=== PATIENT | female | born 1945 | race Caucasian/White ===

== ENCOUNTER 2018-04-26 08:27 | Outpatient (CLI) | payer MEDICARE, SELFPAY ==
[2018-04-26 09:53] LABS: ALT 28 U/L (12-78); AST 17 U/L (15-37); Albumin 3.5 g/dL (3.4-5.0); Alkaline Phosphatase 62 U/L (46-116); Anion Gap 5.5 mmol/L (3-11); BUN 24 mg/dL (7-18); Bilirubin, Total 0.5 mg/dL (0.2-1.0); CO2 29.5 mmol/L (21.0-32.0); Calcium 8.6 mg/dL (8.5-10.1); Chloride 106 mmol/L (98-107); Cholesterol 213 mg/dL (50-200); Glucose 81 mg/dL (70-100); HDL Cholesterol 107 mg/dL (40-60); LDL CHOLESTEROL 94 mg/dL (<100); Potassium 4.7 mmol/L (3.5-5.1); Sodium 141 mmol/L (136-145); Total Protein 6.3 g/dL (6.4-8.2); Triglyceride 45 mg/dL (30-150)
== END 2018-04-26 08:47 ==
DX: I73.00 Raynaud's syndrome without gangrene (principal); G89.29 Other chronic pain; E78.89 Other lipoprotein metabolism disorders
CPT/HCPCS: 36415; 80053; 80061; 83721

== ENCOUNTER 2018-06-01 07:33 | Emergency (ER) | payer MEDICARE, SELFPAY ==
[2018-06-01] VITALS (9 sets, daily range): BP systolic 132–160; BP diastolic 65–70; PULSE 56–58; RESP 18; TEMP 36.5–36.7; O2SAT 90–100
[2018-06-01 07:50] LABS: Bilirubin Negative (Negative); Blood Negative (Negative); Clarity Clear; Glucose Negative (Negative); Ketones Negative (Negative); Leukocyte Esterase Negative (Negative); Nitrite Negative (Negative); Urobilinogen 0.2 EU/dL (Up TO 0.2)
--- NOTE | 2018-06-01 07:58 | DI.CT_ITS ---
SYMPTOM/DIAGNOSIS: RIGHT FLANK PAIN CT ABDOMEN AND PELVIS: Renal colic CT was performed according to protocol. There are no priors for comparison The visualized lungs show scarring, atelectasis in the bases. Lack of IV contrast does limit evaluation of the abdominal, pelvic organs. The unenhanced visualized portions of the liver, spleen, gallbladder, bile ducts , pancreas and adrenal glands are unremarkable. The kidneys show no evidence of nephrolithiasis, ureterolithiasis or hydronephrosis. The urinary bladder is intact. Reproductive organs as visualized are unremarkable. Note is made of bilateral parapelvic cysts. The abdominal aorta is of normal caliber. No significant abdominal or pelvic adenopathy, ascites or pneumoperitoneum is present. There is diverticulosis of the colon but no evidence of acute diverticulitis. There is a mild to moderate amount of retained stool in the colon. There is a normal appendix in the right lower quadrant. The bones are intact. There are degenerative changes in the spine and hips bilaterally, right greater than left. IMPRESSION: No evidence of nephrolithiasis or obstructive uropathy. The findings were discussed with Dr. Freeman of the Emergency Department on the date of the examination.
[2018-06-01 08:09] LABS: Bacteria Few HPF (Negative); Crystals Negative HPF (Negative); Epithelial Cells Few HPF (Negative); Mucus Trace (Negative); RBC Negative (0-2); WBC 0-2 HPF (0-5)
[2018-06-01 08:10] LABS: C & S Indicated? No; Casts 0-2 Hyaline LPF (Negative)
[2018-06-01] MEDS: Normal Saline 1,000 ML 1000 ML IV (08:10)
[2018-06-01] MEDS: Ondansetron 4 MG/2 ML VIAL IVP (08:13)
[2018-06-01] MEDS: Ketorolac 15 MG/ML VIAL IVP (08:14)
[2018-06-01 08:17] LABS: Absolute Basophil Count 0.04 k/cumm (0.0-0.2); Absolute Eosinophil Count 0.07 k/cumm (0.0-0.7); Absolute Lymphocyte Count 0.76 k/cumm (1.2-3.4); Absolute Monocyte Count 0.37 k/cumm (0.11-0.7); Absolute Neutrophil Count 4.75 k/cumm (1.2-6.7); Basophils % 0.7; Eosinophils % 1.2; HCT 42.5 % (36.0-46.0); HGB 14.1 g/dL (12.0-15.5); Lymphocytes % 12.7; Mean Corp. HGB Concentration 33.2 g/dL (32.0-36.0); Mean Corpuscular Hemoglobin 30.2 pg (27.0-33.0); Mean Platelet Volume 9.5 fL (8.0-11.0); Monocytes % 6.2; Neutrophils % 79.2; Platelet Count 230 x1000/uL (130-400); RBC 4.67 m/cumm (4.00-5.20); RBC Distribution Width 13.6 % (11.7-14.6); White Blood Cell Count 5.99 k/cumm (4.4-10.8)
--- NOTE | 2018-06-01 08:21 | W.ED.GENAD ---
Discharge Plan Disposition Patient Disposition: HOME Condition: Good Discharge Details Chief Complaint: FlankPain Clinical Impression: Lumbar paraspinal muscle spasm, Right flank pain Primary Care Provider: Clarisa Conti ED Provider: Lio Freeman Home Meds and New Rx's Prescriptions: New cyclobenzaprine 10 mg tablet 10 mg PO TID PRN (Reason: muscle spasm) Qty: 30 RF: 0 Continue cholecalciferol (vitamin D3) [Vitamin D3] 400 UNIT capsule 400 unit PO daily prn RF: 0 ibuprofen [Ibuprofen IB] 200 MG tablet 400 mg PO TID PRN RF: 0 triamcinolone acetonide 15 GM cream 1 appful Topical BID PRNQty: 30 RF: 1 Discharge Instructions Instructions: Muscle Spasm (ED) Additional Instructions: your blood work and cat scan did not show a cause for your pain. this could be a muscle spasm, back strain or less likely a disc herniation you can take 1000mg tylenol and 600mg ibuprofen every 6 hours for pain as needed. If you take the cyclobenzaprine do not drive or drink alcohol follow up with your primary care provider's office in a week especially if symptoms continue return to the emergency department for severe worsening of pain, abdominal pain, fevers, weakness or inability to urinate Medical Decision Making 72 yo female began with right lower back pain yesterday and some intermittent nusea. Has no cva tenderness, urinary symptoms or fevers. No abdominal tenderness. Denies any trauma or known heavy lifting. Given location of pain will obtain CT to eval for possible kidney stone. No abdominal tenderness so doubt entities such as appendicitis or other surgical pathology. Normal strength and sensation in the lower extremities and no saddle anesthesia or urinary retention so doubt cauda equina and no fevers or midline back pain so doubt sea pts labs unremarkable and ua is also unremarkble. Ct per Dr. Senior shows no acute findings. She still only has pain in the right lower lumbar region, no upper back pain and still no focal motor or sensation deficits and no saddle anesthesia so do not feel emergent MRI indicated. will tx as possible muscle spasm and advised f/u with pcp in a week if not improving and return precautions given Differential Diagnosis back strain, pyelo, kidney stone Imaging Data Radiologic Study: Attestation: I personally reviewed and interpreted this imaging study as follows: Imaging: CT Scan Radiologist's impression: no acute findings per Dr. Senior verbal report Lab Data Lab results reviewed: Yes I reviewed the patient's lab results. HPI General Mode of arrival: ambulatory. Date/Time Provider Initiated Documentation: 06/01/18 07:58. Limitations to Documentation: no limitations. Information obtained by: patient. History of Present Illness 72 year old F presents to the emergency department with the chief complaint of right lower back pain, described as moderate, Quality is described as aching, Patient reports no radiation. Patient started experiencing this day(s) (1) No relieving factors improve symptom(s), No exacerbating factors reported . Patient did receive the following treatments prior to arrival, NSAID Related Data Home Medications Medication Instructions Recorded Confirmed cholecalciferol (vitamin D3) 400 unit PO daily prn 05/11/15 06/01/18 [Vitamin D3] ibuprofen [Ibuprofen IB] 400 mg PO TID PRN tab-cap 05/29/15 06/01/18 triamcinolone acetonide 1 appful TOPICAL BID PRN #30 gm 07/31/17 05/03/18 cyclobenzaprine 10 mg PO TID PRN #30 tab 06/01/18 Previous Rx's Medication Instructions Recorded cyclobenzaprine 10 mg PO TID PRN #30 tab 06/01/18 Allergies Allergy/AdvReac Type Severity Reaction Status Date / Time Sulfa (Sulfonamide Allergy Mild RASH Unverified 06/01/18 07:53 Antibiotics) Scallops Allergy Intermediate Vomiting/Di Uncoded 06/01/18 07:53 arrhea General Stated Complaint: FlankPain AVTAR: 3 Review of Systems Review of Systems All systems reviewed & are unremarkable except as noted in HPI and below Constitutional Denies chills, Denies fever(s) and Denies weakness Eyes Denies loss of vision ENT Denies change in voice Cardiovascular Denies chest pain and Denies dyspnea Respiratory Denies dyspnea Gastrointestinal Denies abdominal pain and Denies vomiting Genitourinary Denies dysuria Musculoskeletal Denies joint swelling Integumentary/Breasts Denies rash Neurologic Denies loss of vision and Denies weakness Endocrine Denies cold intolerance and Denies heat intolerance Allergic/Immunologic Denies urticaria Exam Const General: no acute distress Orientation: alert HENMT Head: normal to inspection Ears: external ears normal General nose exam: external nose normal Mouth: moist mucous membranes Eyes General: appearance normal, both eyes and all related structures Neck Neck: normal visual inspection Resp Effort & Inspection: normal respiratory effort and able to speak in complete sentences Cardio Rate: regular rate Skin General skin exam: no rashes or lesions noted Neuro General: alert and oriented x3 Extrem General: normal to inspection Psych Mental Status: mental status grossly normal Course Vital Signs Pulse 57 L 06/01/18 07:43 Blood Pressure 160/70 H 06/01/18 07:43 Temperature 36.7 C 06/01/18 07:44 Temperature Source Temporal Artery Scan 06/01/18 07:44 Pulse 56 L 06/01/18 07:46 Respiratory Rate 18 06/01/18 07:44 Respiratory Effort Non-Labored 06/01/18 07:50 Blood Pressure 158/67 H 06/01/18 07:46 Blood Pressure Mean 91 06/01/18 07:46 Blood Pressure Position Supine 06/01/18 07:44 Pulse Oximetry 99 06/01/18 07:46 Oxygen Delivery Method Room Air 06/01/18 07:44 Oxygen Flow Rate 0 06/01/18 07:44 Pain Level 7 06/01/18 08:14 Lab/Test Results Lab/Test Results: Laboratory Tests Range/Units 06/01/18 06/01/18 07:43 08:05 WBC (4.4-10.8) k/cumm 5.99 RBC (4.00-5.20) m/cumm 4.67 Hgb (12.0-15.5) g/dL 14.1 Hct (36.0-46.0) % 42.5 MCV (80-95) fL 91.0 MCH (27.0-33.0) pg 30.2 MCHC (32.0-36.0) g/dL 33.2 RDW (11.7-14.6) % 13.6 Plt Count (130-400) x1000/uL 230 MPV (8.0-11.0) fL 9.5 Immature Gran % 0.0 Neutrophils % 79.2 Lymphocytes % 12.7 Monocytes % 6.2 Eosinophils % 1.2 Basophils % 0.7 Absolute Neutrophils (1.2-6.7) k/cumm 4.75 Absolute Lymphocytes (1.2-3.4) k/cumm 0.76 L Absolute Monocytes (0.11-0.7) k/cumm 0.37 Absolute Eosinophils (0.0-0.7) k/cumm 0.07 Absolute Basophils (0.0-0.2) k/cumm 0.04 Urine Color (Yellow) Yellow Urine Clarity Clear Urine pH (5-8) 7.0 Ur Specific [place] (1.005-1.025) 1.020 Urine Protein (Negative) mg/dL Trace H Urine Ketones (Negative) mg/dL Negative Urine Blood (Negative) Negative Urine Nitrite (Negative) Negative Urine Bilirubin (Negative) Negative Urine Urobilinogen (Up TO 0.2) EU/dL 0.2 Ur Leukocyte Esterase (Negative) Negative Urine RBC (0-2) Negative Urine WBC (0-5) HPF 0-2 Ur Epithelial Cells (Negative) HPF Few Urine Crystals (Negative) HPF Negative Urine Bacteria (Negative) HPF Few Urine Casts (Negative) LPF 0-2 hyaline Urine Mucus (Negative) Trace Ur Culture Indicated? No Urine Glucose (Negative) mg/dL Negative
--- NOTE | 2018-06-01 08:25 | ED.GENADUL_ITS ---
Discharge Plan Disposition Patient Disposition: HOME Condition: Good Discharge Details Chief Complaint: FlankPain Clinical Impression: Lumbar paraspinal muscle spasm, Right flank pain Primary Care Provider: Clarisa Conti ED Provider: Lio Freeman Home Meds and New Rx's Prescriptions: New cyclobenzaprine 10 mg tablet 10 mg PO TID PRN (Reason: muscle spasm) Qty: 30 RF: 0 Continue cholecalciferol (vitamin D3) [Vitamin D3] 400 UNIT capsule 400 unit PO daily prn RF: 0 ibuprofen [Ibuprofen IB] 200 MG tablet 400 mg PO TID PRN RF: 0 triamcinolone acetonide 15 GM cream 1 appful Topical BID PRNQty: 30 RF: 1 Discharge Instructions Instructions: Muscle Spasm (ED) Additional Instructions: your blood work and cat scan did not show a cause for your pain. this could be a muscle spasm, back strain or less likely a disc herniation you can take 1000mg tylenol and 600mg ibuprofen every 6 hours for pain as needed. If you take the cyclobenzaprine do not drive or drink alcohol follow up with your primary care provider's office in a week especially if symptoms continue return to the emergency department for severe worsening of pain, abdominal pain , fevers, weakness or inability to urinate Medical Decision Making 72 yo female began with right lower back pain yesterday and some intermittent nusea. Has no cva tenderness, urinary symptoms or fevers. No abdominal tenderness. Denies any trauma or known heavy lifting. Given location of pain will obtain CT to eval for possible kidney stone. No abdominal tenderness so doubt entities such as appendicitis or other surgical pathology. Normal strength and sensation in the lower extremities and no saddle anesthesia or urinary retention so doubt cauda equina and no fevers or midline back pain so doubt sea pts labs unremarkable and ua is also unremarkble. Ct per Dr. Senior shows no acute findings. She still only has pain in the right lower lumbar region, no upper back pain and still no focal motor or sensation deficits and no saddle anesthesia so do not feel emergent MRI indicated. will tx as possible muscle spasm and advised f/u with pcp in a week if not improving and return precautions given Differential Diagnosis back strain, pyelo, kidney stone Imaging Data Radiologic Study: Attestation: I personally reviewed and interpreted this imaging study as follows: Imaging: CT Scan Radiologist's impression: no acute findings per Dr. Senior verbal report Lab Data Lab results reviewed: Yes I reviewed the patient's lab results. HPI General Mode of arrival: ambulatory . Date/Time Provider Initiated Documentation: 06/01/18 07:58 . Limitations to Documentation: no limitations . Information obtained by: patient . History of Present Illness 72 year old F presents to the emergency department with the chief complaint of right lower back pain, described as moderate, Quality is described as aching , Patient reports no radiation. Patient started experiencing this day(s) (1 ) No relieving factors improve symptom(s), No exacerbating factors reported . Patient did receive the following treatments prior to arrival, NSAID Related Data Home Medications Medication Instructions Recorded Confirmed cholecalciferol (vitamin D3) 400 unit PO daily prn 05/11/15 06/01/18 [Vitamin D3] ibuprofen [Ibuprofen IB] 400 mg PO TID PRN tab-cap 05/29/15 06/01/18 triamcinolone acetonide 1 appful TOPICAL BID PRN #30 gm 07/31/17 05/03/18 cyclobenzaprine 10 mg PO TID PRN #30 tab 06/01/18 Previous Rx's Medication Instructions Recorded cyclobenzaprine 10 mg PO TID PRN #30 tab 06/01/18 Allergies Allergy/AdvReac Type Severity Reaction Status Date / Time Sulfa (Sulfonamide Allergy Mild RASH Unverified 06/01/18 07:53 Antibiotics) Scallops Allergy Intermediate Vomiting/Di Uncoded 06/01/18 07:53 arrhea General Stated Complaint: FlankPain AVTAR: 3 Review of Systems Review of Systems All systems reviewed & are unremarkable except as noted in HPI and below Constitutional Denies chills, Denies fever(s) and Denies weakness Eyes Denies loss of vision ENT Denies change in voice Cardiovascular Denies chest pain and Denies dyspnea Respiratory Denies dyspnea Gastrointestinal Denies abdominal pain and Denies vomiting Genitourinary Denies dysuria Musculoskeletal Denies joint swelling Integumentary/Breasts Denies rash Neurologic Denies loss of vision and Denies weakness Endocrine Denies cold intolerance and Denies heat intolerance Allergic/Immunologic Denies urticaria Exam Const General: no acute distress Orientation: alert HENMT Head: normal to inspection Ears: external ears normal General nose exam: external nose normal Mouth: moist mucous membranes Eyes General: appearance normal, both eyes and all related structures Neck Neck: normal visual inspection Resp Effort & Inspection: normal respiratory effort and able to speak in complete sentences Cardio Rate: regular rate Skin General skin exam: no rashes or lesions noted Neuro General: alert and oriented x3 Extrem General: normal to inspection Psych Mental Status: mental status grossly normal Course Vital Signs Pulse 57 L 06/01/18 07:43 Blood Pressure 160/70 H 06/01/18 07:43 Temperature 36.7 C 06/01/18 07:44 Temperature Source Temporal Artery Scan 06/01/18 07:44 Pulse 56 L 06/01/18 07:46 Respiratory Rate 18 06/01/18 07:44 Respiratory Effort Non-Labored 06/01/18 07:50 Blood Pressure 158/67 H 06/01/18 07:46 Blood Pressure Mean 91 06/01/18 07:46 Blood Pressure Position Supine 06/01/18 07:44 Pulse Oximetry 99 06/01/18 07:46 Oxygen Delivery Method Room Air 06/01/18 07:44 Oxygen Flow Rate 0 06/01/18 07:44 Pain Level 7 06/01/18 08:14 Lab/Test Results Lab/Test Results: Laboratory Tests Range/Units 06/01/18 06/01/18 07:43 08:05 WBC (4.4-10.8) k/cumm 5.99 RBC (4.00-5.20) m/cumm 4.67 Hgb (12.0-15.5) g/dL 14.1 Hct (36.0-46.0) % 42.5 MCV (80-95) fL 91.0 MCH (27.0-33.0) pg 30.2 MCHC (32.0-36.0) g/dL 33.2 RDW (11.7-14.6) % 13.6 Plt Count (130-400) x1000/uL 230 MPV (8.0-11.0) fL 9.5 Immature Gran % 0.0 Neutrophils % 79.2 Lymphocytes % 12.7 Monocytes % 6.2 Eosinophils % 1.2 Basophils % 0.7 Absolute Neutrophils (1.2-6.7) k/cumm 4.75 Absolute Lymphocytes (1.2-3.4) k/cumm 0.76 L Absolute Monocytes (0.11-0.7) k/cumm 0.37 Absolute Eosinophils (0.0-0.7) k/cumm 0.07 Absolute Basophils (0.0-0.2) k/cumm 0.04 Urine Color (Yellow) Yellow Urine Clarity Clear Urine pH (5-8) 7.0 Ur Specific [place] (1.005-1.025) 1.020 Urine Protein (Negative) mg/dL Trace H Urine Ketones (Negative) mg/dL Negative Urine Blood (Negative) Negative Urine Nitrite (Negative) Negative Urine Bilirubin (Negative) Negative Urine Urobilinogen (Up TO 0.2) EU/dL 0.2 Ur Leukocyte Esterase (Negative) Negative Urine RBC (0-2) Negative Urine WBC (0-5) HPF 0-2 Ur Epithelial Cells (Negative) HPF Few Urine Crystals (Negative) HPF Negative Urine Bacteria (Negative) HPF Few Urine Casts (Negative) LPF 0-2 hyaline Urine Mucus (Negative) Trace Ur Culture Indicated? No Urine Glucose (Negative) mg/dL Negative
[2018-06-01 08:29] LABS: ALT 30 U/L (12-78); AST 21 U/L (15-37); Albumin 3.7 g/dL (3.4-5.0); Alkaline Phosphatase 63 U/L (46-116); BUN 22 mg/dL (7-18); Bilirubin, Direct 0.12 mg/dL (0.00-0.20); Bilirubin, Total 0.5 mg/dL (0.2-1.0); CREATININE 0.93 mg/dL (0.55-1.02); Chloride 100 mmol/L (98-107); Estimated GFR 58.93 (mL/min/1.73m2); Glucose 107 mg/dL (70-100); Lipase 146 U/L (73-393); Magnesium 1.8 mg/dL (1.8-2.4); Potassium 4.3 mmol/L (3.5-5.1); Sodium 137 mmol/L (136-145)
== END 2018-06-01 09:31 | disposition home or self-care (01) ==
PROVIDERS: Emergency Provider Emergency Medicine
DX: M62.830 Muscle spasm of back (principal); R10.31 Right lower quadrant pain; R11.0 Nausea
CPT/HCPCS: 36415; 80053; 80076; 83690; 96361; 96374; 96375; 99284; 74176; 81003; 81015; 83735; 85025; 99283; J1885; J2405

== ENCOUNTER 2019-06-03 01:42 | Outpatient (CLI) | payer MEDICARE, SELFPAY ==
[2019-06-03 09:07] LABS: BUN 29 mg/dL (7-18); CREATININE 0.88 mg/dL (0.55-1.02); Calcium 9.4 mg/dL (8.5-10.1); Chloride 106 mmol/L (98-107); Glucose 85 mg/dL (70-100); Potassium 4.4 mmol/L (3.5-5.1); Sodium 142 mmol/L (136-145)
== END 2019-06-03 02:02 ==
DX: R68.89 Other general symptoms and signs; R53.1 Weakness
CPT/HCPCS: 36415; 80048

== ENCOUNTER 2020-05-17 02:41 | Outpatient (CLI) | payer MEDICARE, SELFPAY ==
[2020-05-17 08:48] LABS: ALT 29 U/L (14-59); AST 20 U/L (15-37); Albumin 3.9 g/dL (3.4-5.0); Alkaline Phosphatase 58 U/L (46-116); Anion Gap 5.6 mmol/L (3-11); BUN 29 mg/dL (7-18); Bilirubin, Total 0.7 mg/dL (0.2-1.0); CO2 29.4 mmol/L (21.0-32.0); CREATININE 1.04 mg/dL (0.55-1.02); Calcium 9.3 mg/dL (8.5-10.1); Chloride 103 mmol/L (98-107); Estimated GFR 51.52 (mL/min/1.73m2); Glucose 84 mg/dL (74-106); Potassium 4.4 mmol/L (3.5-5.1); Sodium 138 mmol/L (136-145); Total Protein 6.8 g/dL (6.4-8.2)
== END 2020-05-17 03:01 ==
DX: M62.81 Muscle weakness (generalized) (principal); R10.31 Right lower quadrant pain; R68.89 Other general symptoms and signs
CPT/HCPCS: 36415; 80053

== ENCOUNTER 2021-05-02 02:43 | Outpatient (CLI) | payer MEDICARE, SELFPAY ==
[2021-05-02 09:25] LABS: ALT 28 U/L (14-59); AST 21 U/L (15-37); Albumin 3.8 g/dL (3.4-5.0); Alkaline Phosphatase 65 U/L (46-116); Anion Gap 7.7 mmol/L (3-11); BUN 28 mg/dL (7-18); Bilirubin, Total 0.5 mg/dL (0.2-1.0); CO2 28.3 mmol/L (21.0-32.0); CREATININE 0.9 mg/dL (0.55-1.02); Calcium 9.1 mg/dL (8.5-10.1); Chloride 105 mmol/L (98-107); Glucose 85 mg/dL (74-106); Potassium 4.6 mmol/L (3.5-5.1); Sodium 141 mmol/L (136-145); Total Protein 6.6 g/dL (6.4-8.2)
== END 2021-05-02 02:44 | disposition home or self-care (01) ==
LOC: LBO 02:43
DX: I73.00 Raynaud's syndrome without gangrene; M16.11 Unilateral primary osteoarthritis, right hip; R10.84 Generalized abdominal pain
CPT/HCPCS: 36415; 80053

== ENCOUNTER 2021-06-21 18:43 | Outpatient (REF) | payer MEDICARE, SELFPAY ==
[2021-06-24 12:12] LABS: COVID-19 RT-PCR UVMMC Result Indeterminate (Negative)
== END 2021-06-21 18:44 | disposition home or self-care (01) ==
LOC: LBN 18:43
PROVIDERS: Visit Provider Family Medicine
DX: Z20.822 Contact with and (suspected) exposure to COVID-19 (principal); R50.9 Fever, unspecified
CPT/HCPCS: U0003

== ENCOUNTER → 2022-03-06 02:04 | Outpatient (CLI) | payer MEDICARE, SELFPAY ==
--- NOTE | 2022-03-06 06:30 | DI.RAD_ITS ---
Exam(s) XR CHEST 2V PA LATERAL EXAM: XR CHEST 2V PA LATERAL CLINICAL HISTORY: dyspnea on exertion x 1yr,R06.00 TECHNIQUE: 2D digital imaging was performed. COMPARISON: No exams were available for comparison FINDINGS: MEDIASTINUM: Normal. HEART: Normal. PULMONARY VASCULATURE: Normal. LUNGS: Fibrotic changes. PLEURAL SPACE: No pleural effusion or pneumothorax. BONE:Unremarkable for age. IMPRESSION: Mild fibrotic changes. No acute abnormality. DATA REPOSITORY: RADIATION DOSE DELIVERED:
== END ==
PROVIDERS: Visit Provider Nurse Practitioner Family
DX: R06.00 Dyspnea, unspecified (principal); J98.4 Other disorders of lung
CPT/HCPCS: 71046

== ENCOUNTER 2022-03-07 01:02 | Outpatient (CLI) | payer MEDICARE, SELFPAY ==
[2022-03-07 12:45] LABS: Abs Immature Grans 0.02 10^3/uL (0.0-0.06); Absolute Basophil Count 0.08 10^3/uL (0.0-0.2); Absolute Eosinophil Count 0.48 10^3/uL (0.0-0.7); Absolute Lymphocyte Count 1.41 10^3/uL (1.2-3.4); Absolute Monocyte Count 0.61 10^3/uL (0.1-0.8); Absolute Neutrophil Count 4.18 10^3/uL (1.2-6.7); Basophils % 1.2; Eosinophils % 7.1; HCT 41.8 % (36.0-46.0); HGB 13.8 g/dL (11.2-15.7); Immature Grans % 0.3; Lymphocytes % 20.8; MCH 30.3 pg (27.0-33.0); MCV 92 fL (80-95); MPV 10.6 fL (8.0-11.0); Neutrophils % 61.6; Platelet Count 228 10^3/uL (130-400); RBC 4.55 10^6/uL (3.93-5.22); RDW 12.9 % (11.7-14.6); RDW-SD 43.6 fL; WBC 6.78 10^3/uL (4.4-10.8)
== END 2022-03-07 01:03 | disposition home or self-care (01) ==
LOC: LOS 01:03
PROVIDERS: Visit Provider Nurse Practitioner Family
DX: R06.09 Other forms of dyspnea (principal)
CPT/HCPCS: 36415; 85025

== ENCOUNTER 2022-03-10 04:13 | Outpatient (CLI) | payer MEDICARE, SELFPAY ==
[2022-03-10] MEDS: Inhaler, Assist Device 1 EACH MC (11:34)
[2022-03-10] MEDS: Albuterol HFA 18 GM 200 PUFF INH IH (11:34)
--- NOTE | 2022-03-12 15:28 | W.PFT ---
Date of service: 03/10/22 Time of Service: 10:08 Pulmonary Function Test Result Requesting Provider Mary Bruno Indications: Dyspnea Interpretation Spirometry: There is moderate airflow limitation. There is technically no significant bronchodilator response. Lung Volumes: Lung volumes are normal. Diffusion Capacity: Diffusion is low. Airway Pressure: Increased airways resistance. Impression Moderate airflow obstruction with borderline bronchodilator response and a low diffusion. 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 The borderline bronchodilator response and increased airways resistance could indicate an asthma overlap syndrome. Clinical Correlation therefore is recommended.
== END 2022-03-10 04:14 | disposition home or self-care (01) ==
LOC: RT 04:14
PROVIDERS: Visit Provider Nurse Practitioner Family
DX: R94.2 Abnormal results of pulmonary function studies (principal); R06.09 Other forms of dyspnea; R06.2 Wheezing; Z87.891 Personal history of nicotine dependence
CPT/HCPCS: 94060; 94726; 94729

== ENCOUNTER → 2022-04-23 11:59 | Outpatient (CLI) | payer MEDICARE, SELFPAY ==
--- NOTE | 2022-04-23 15:06 | DI.US_ITS ---
APPROVED REPORT EXAM: Comprehensive 2D, Doppler, and color-flow Echocardiogram Patient Location: Out-Patient Dispatch Lead: Loida Abreu RDCS (AE) Indications: SOB, SIMMONS,Asthma Other Information Study Quality: Adequate Conclusion Normal left ventricular wall thickness and chamber size. Estimated ejection fraction is 59%. Wall m otion is normal Normal right ventricular size and systolic function Both atria are normal in size There is no structural or hemodynamically significant valvular disease Estimated right ventricular systolic pressure is 31 mmHg Wall motion Left Ventricle The left ventricle is normal size. The left ventricular systolic function is normal. The left ventric ular ejection fraction is within the normal range. There is normal left ventricular wall thickness. T here is normal LV segmental wall motion. There is no ventricular septal defect visualized. LVEF is 59 %. Right Ventricle The right ventricle is normal size. The right ventricular systolic function is normal. The RVSP is 30 .5_ mmHg. Atria The left atrium size is normal. The right atrium size is normal. The interatrial septum is intact wit h no evidence for an atrial septal defect. Aortic Valve The aortic valve is normal in structure. Aortic valve is trileaflet. There is no aortic valvular sten osis. No aortic regurgitation is present. Mitral Valve The mitral valve is normal in structure. No evidence of mitral valve stenosis. Trace to mild mitral r egurgitation. Tricuspid Valve The tricuspid valve is normal in structure. There is no tricuspid valve stenosis. Mild tricuspid regu rgitation. Pulmonic Valve The pulmonary valve is normal in structure. There is no pulmonic valvular stenosis. There is no pulmo beatriz valvular regurgitation. Great Vessels The aortic root is normal in size. Ascending aorta is not well visualized. Aortic arch is normal in c aliber. IVC is normal in size and collapses >50% with inspiration. Pericardium There is no pericardial effusion. 2D Dimensions IVSD d PLAX 0.91 cm F: 0.6-1.0 LV Vol A2C d MOD 109.3 mL LVPW d PLAX 0.92 cm F: 0.6 - 1.0 LV Vol A4C d MOD 87.8 mL LVID d PLAX 4.29 cm F: 3.8 - 5.2 LA vol/ BSA A2C s A-L 18.9 mL/m2 LVDs 3.00 cm F: 2.2 - 3.5 LA vol/ BSA A4C s A-L 26.2 mL/m2 Ao Root d 3.03 cm F: 2.7 - 3.3 LA Vol/ BSA Biplane s A-L 23.4 mL/m2 RA Area A4C 13.69 cm2 LA Area A4C s MOD 17.71 cm2 RA Vol/ BSA A4C s A-L 20.7 mL/m2 LA Area A2C s MOD 14.32 cm2 LV EF Teichholz 56.0 % LV EF A4C MOD 60.5 % LVEF (Martin's) 56.35 % F: 54 - 74 LV EF A2C MOD 58.0 % LV Volume 77.90 mL F: 46 - 106 LV EF Biplane MOD 56.4 % LV Volume Index 45.82 mL/m2 F: 29 - 61 SV 55.35 mL LV Vol Biplane MOD 98.2 mL SV Index 32.44 mL/m2 FS 29.00 % M-Mode TAPSE 2.54 cm (M/F) >1.7 LV Diastology MV E' medial 0.096 (>0.07 m/s) E/A Ratio 1.0 LV E/e MED 7.45 (<14) MV E Vmax 0.72 (0.4-1.3 m/s) MV E' lateral 0.142 (>0.1 m/s) MV A Vmax 0.75 (0.4-1.3 m/s) LV E/e LAT 5.00 (<14) MV E/A Ratio 0.91 MV E/E' medial 7.46 MV E/E' lateral 5.04 Aortic Valve LVOT Area 3.73 cm2 AoV Area Vmax 2.90 cm2 LVOT Vmax 1.16 m/s AoV Area/ BSA (Vmax) 1.70 cm2/m2 LVOT Mean Torres. 0.77 m/s SAM Mean Torres. 2.71 cm2 LVOT Peak Grad 5.3 mmHg SAM Mean Torres. Index 1.59 cm2/m2 LVOT Mean Grad 2.7 mmHg LVOT VTI 0.278 m LVOT Diam s 2.15 cm AoV Vmax 1.48 m/s Velocity Ratio 0.78 AoV Mean Torres. 1.05 m/s AoV Peak Grad 8.8 mmHg LVOT SV 103.77 mL AoV Mean Grad 4.9 mmHg AoV VTI 0.327 m AoV Area VTI 3.17 cm2 AoV Area/ BSA (VTI) 1.86 cm/m2 Mitral Valve MV DT 215 (160-240 msec) MV PHT 62 msec MV Area PHT 3.52 cm2 MV VTI 0.356 m MV Area VTI 2.91 (4.0-6.0 cm2) Pulmonary Valve PV Vmax 1.03 (0.5-1.5 m/s) RVOT Peak Gr. 0.83 mmHg PV Peak Grad 4.2 mmHg RVOT Mean Gr. 0.45 mmHg PV Mean Grad 3.1 mmHg RVOT VTI 0.100 m PV VTI 0.254 m RVOT Vmax 0.45 m/s Tricuspid Valve TR Peak Grad 27.4 mmHg TR Vmax 2.62 m/s RA Pressure 3.00 mmHg RVSP (TR) 30.5 mmHg
== END ==
PROVIDERS: Visit Provider Family Medicine
DX: J44.9 Chronic obstructive pulmonary disease, unspecified (principal); R06.00 Dyspnea, unspecified; Z98.890 Other specified postprocedural states
CPT/HCPCS: 93306

== ENCOUNTER 2022-07-09 12:55 | Outpatient (REF) | payer MEDICARE, SELFPAY ==
[2022-07-09 13:20] LABS: COMMENT (LAB VIEW ONLY) 17.99 mg/dL; Microalb ug/mg Crea 27.2 ug/mg Cr
== END 2022-07-09 12:56 | disposition home or self-care (01) ==
LOC: LBN 12:55
PROVIDERS: PCP Nurse Practitioner Family; Visit Provider Nurse Practitioner Family
DX: I10 Essential (primary) hypertension (principal)
CPT/HCPCS: 82043; 82570

== ENCOUNTER 2022-07-29 03:15 | Outpatient (CLI) | payer MEDICARE, SELFPAY ==
[2022-07-29 08:15] LABS: ALT 26 U/L (14-59); AST 24 U/L (15-37); Albumin 3.9 g/dL (3.4-5.0); Alkaline Phosphatase 65 U/L (46-116); Anion Gap 6.7 mmol/L (3-11); BUN 30 mg/dL (7-18); Bilirubin, Total 0.6 mg/dL (0.2-1.0); CO2 28.3 mmol/L (21.0-32.0); CREATININE 1.1 mg/dL (0.55-1.02); Calcium 9.7 mg/dL (8.5-10.1); Chloride 103 mmol/L (98-107); Estimated GFR 51.43 (mL/min/1.73m2); Glucose 91 mg/dL (74-106); Potassium 4.1 mmol/L (3.5-5.1); Sodium 138 mmol/L (136-145); Total Protein 7.3 g/dL (6.4-8.2)
== END 2022-07-29 03:16 | disposition home or self-care (01) ==
LOC: LBO 03:15
PROVIDERS: PCP Nurse Practitioner Family; Visit Provider Nurse Practitioner Family
DX: I10 Essential (primary) hypertension (principal)
CPT/HCPCS: 36415; 80053

== ENCOUNTER 2022-12-13 16:29 | Outpatient (REF) | payer MEDICARE, SELFPAY ==
[2022-12-13 17:06] LABS: Anion Gap 4.9 mmol/L (3-11); BUN 37 mg/dL (7-18); CO2 29.1 mmol/L (21.0-32.0); CREATININE 1.2 mg/dL (0.55-1.02); Calcium 9.5 mg/dL (8.5-10.1); Chloride 104 mmol/L (98-107); Estimated GFR 46.05 (mL/min/1.73m2); Glucose 105 mg/dL (74-106); Potassium 4.6 mmol/L (3.5-5.1); Sodium 138 mmol/L (136-145); Uric Acid 5.3 mg/dL (2.6-6.0)
== END 2022-12-13 16:30 | disposition home or self-care (01) ==
LOC: LBN 16:29
PROVIDERS: PCP Nurse Practitioner Family; Visit Provider Nurse Practitioner Family
DX: M25.561 Pain in right knee (principal); I10 Essential (primary) hypertension
CPT/HCPCS: 80048; 84550

== ENCOUNTER 2022-12-16 11:14 | Outpatient (CLI) | payer MEDICARE, SELFPAY ==
--- NOTE | 2022-12-16 11:15 | DI.RAD_ITS ---
Exam(s) XR KNEE RT 3V AP,LAT,KRYSTAL EXAM: XR KNEE RT 3V AP,LAT,KRYSTAL CLINICAL HISTORY: increased pain and swelling, seborrheic keratoses, L82.1. TECHNIQUE: 2D digital imaging was performed. COMPARISON: No exams were available for comparison FINDINGS: 3 views No evidence fracture nor obvious joint effusion. There are significant degenerative changes in the p atellofemoral compartment. Mild degenerative changes in the medial lateral compartments. Bone densi ty age-appropriate. No osseous lesions. IMPRESSION: As above. DATA REPOSITORY: RADIATION DOSE DELIVERED:
== END 2022-12-16 11:34 ==
LOC: DI 11:15
PROVIDERS: PCP Nurse Practitioner Family; Visit Provider Nurse Practitioner Family
DX: M25.561 Pain in right knee (principal); M22.3X1 Other derangements of patella, right knee
CPT/HCPCS: 73562

== ENCOUNTER 2023-01-30 02:04 | Outpatient (CLI) | payer MEDICARE, SELFPAY ==
[2023-01-30 08:21] LABS: Calculated LDL 107 mg/dL (<100); Cholesterol 216 mg/dL (<200); HDL Cholesterol 103 mg/dL (40-60); Triglyceride 32 mg/dL (<150)
== END 2023-01-30 02:05 | disposition home or self-care (01) ==
LOC: LBO 02:04
PROVIDERS: PCP Nurse Practitioner Family; Visit Provider Nurse Practitioner Family
DX: I10 Essential (primary) hypertension (principal)
CPT/HCPCS: 36415; 80061

== ENCOUNTER → 2023-03-06 08:59 | Outpatient (BNVA) | payer MEDICARE, SELFPAY | PROVIDERS: PCP Nurse Practitioner Family; Referring Provider Nurse Practitioner Family | DX: M17.11 Unilateral primary osteoarthritis, right knee (principal) | CPT/HCPCS: 20610; J1040 ==

== ENCOUNTER 2023-06-26 03:07 | Outpatient (CLI) | payer MEDICARE, SELFPAY ==
[2023-06-26 08:02] LABS: Anion Gap 6.8 mmol/L (3-11); BUN 33 mg/dL (7-18); CO2 27.2 mmol/L (21.0-32.0); CREATININE 1.1 mg/dL (0.55-1.02); Calcium 9.3 mg/dL (8.5-10.1); Chloride 105 mmol/L (98-107); Estimated GFR 51.11 (mL/min/1.73m2); Glucose 92 mg/dL (74-106); Potassium 4.4 mmol/L (3.5-5.1); Sodium 139 mmol/L (136-145)
== END 2023-06-26 03:08 | disposition home or self-care (01) ==
PROVIDERS: PCP Nurse Practitioner Family; Visit Provider Nurse Practitioner Family
DX: I10 Essential (primary) hypertension (principal)
CPT/HCPCS: 36415; 80048

== ENCOUNTER → 2023-07-30 14:40 | Outpatient (BNVA) | payer MEDICARE, SELFPAY | PROVIDERS: PCP Nurse Practitioner Family; Referring Provider Nurse Practitioner Family | DX: M17.11 Unilateral primary osteoarthritis, right knee (principal) | CPT/HCPCS: 20610; J1040 ==

== ENCOUNTER → 2023-07-31 01:25 | Outpatient (CLI) | payer MEDICARE, SELFPAY ==
--- NOTE | 2023-07-31 08:00 | DI.CT_ITS ---
Exam(s) CT CHEST WO EXAM: CT CHEST WO CLINICAL HISTORY: FORMER SMOKER, SCREENING FOR LUNG CA,[id number]. TECHNIQUE: Imaging protocol: Axial computed tomography images were obtained and coronal and sagittal reformatted images were created and reviewed. COMPARISON: CT CT renal colic wo from 06/01/2018 FINDINGS: Tracheobronchial tree: Patent where visualized. Pulmonary parenchyma: Mild centrilobular emphysematous changes are present. No architectural distort ion. Calcified granuloma are present. No suspicious nodules. Mediastinum and Valarie: No dominant adenopathy or fluid collection. The esophagus is unremarkable. Thyroid gland: Unremarkable. Pleura: No effusion or pneumothorax. Heart: The heart is not dilated. Coronary artery calcifications are present. No pericardial effusion . Aorta: Thoracic aorta non-dilated. Aortic calcifications are present. Upper abdomen: Unremarkable. Lymph nodes: Within normal limits. Soft tissues: Unremarkable. Bones:Within normal limits for the patient's age. IMPRESSION: 1. No pulmonary nodules. 2. Mild centrilobular emphysema. RADIATION DOSE DELIVERED: 400.4mGy.cm Total DLP 400.4mGy.cm Total DLP DATA REPOSITORY: All CT scans at this facility are submitted to the National Radiology Data Registry (NRDR) Dose Index Registry (DIR) with the [employer] (ACR). RADIATION OPTIMIZATION: All CT scans at this facility use at least one of these dose optimization te chniques: automated exposure control; mA and/or kV adjustment per patient size (includes targeted exa ms where dose is matched to clinical indication); or iterative reconstruction.
== END ==
PROVIDERS: PCP Nurse Practitioner Family; Visit Provider Nurse Practitioner Family
DX: Z87.891 Personal history of nicotine dependence (principal); Z12.2 Encounter for screening for malignant neoplasm of respiratory organs
CPT/HCPCS: 71250

== ENCOUNTER → 2024-03-10 11:51 | Outpatient (BNVA) | payer MEDICARE, SELFPAY | PROVIDERS: PCP Nurse Practitioner Family; Referring Provider Nurse Practitioner Family; Visit Provider Physical Therapy Assistant | DX: Z12.11 Encounter for screening for malignant neoplasm of colon (principal); R19.5 Other fecal abnormalities ==

== ENCOUNTER 2024-03-29 08:30 | Day surgery (SDC) | payer MEDICARE, SELFPAY ==
[2024-03-29 09:00] VITALS: BP 145/71; PULSE 80; RESP 16; TEMP 36.4; O2SAT 99
--- NOTE | 2024-03-29 09:03 | COLE_ITS ---
Date of service: 03/29/24 Time of Service: 09:04 Colonoscopy Report Procedure Description: PROCEDURES PERFORMED: 1. Colonoscopy with cold forceps polypectomy x2 PREOPERATIVE DIAGNOSIS: Positive Cologuard POSTOPERATIVE DIAGNOSIS: Extensive sigmoid diverticulosis, hyperplastic rectal polyps, grade 1 internal hemorrhoids SURGEON: Deangelo Parish MD INDICATION for procedure: The patient is a 78-year-old woman with a positive Cologuard test. No symptoms. Prior colonoscopy normal. No family history of colon cancer. FINDINGS: Normal terminal ileum. I did not find any colon polyps. There is extensive diverticular changes mostly in the sigmoid colon but no active in flammation, no stricture and no obvious fibrosis. There are 3 or 4 hyperplastic?appearing rectal polyps. The largest 2 were removed with cold forceps technique and sent separately to confirm benign histology. SURVEILLANCE interval/FOLLOW-UP: Pending path results of the polyps - if hyperplastic is confirmed then repeat colonoscopy can(and should) be considered at the age of 88 if she is still healthy and active with a good life expectancy at that time. SPECIMENS: yes EBL: Minimal COMPLICATIONS: None QUALITY of prep: Excellent Procedure in detail: The patient gave written consent and was in agreement with the indications, the potential risks as well as the benefits of the procedure. They were taken to the endoscopy suite and laid in the left lateral decubitus position. A timeout was performed and anesthesia was administered which was tolerated well. I started the procedure. Digital rectal and visual examination was performed and grossly within normal limits. A well-lubricated flexible colonoscope was then introduced and passed without any notable difficulty all the way to the cecum identified by the ileocecal valve and the appendiceal orifice. The terminal ileum was intubated and looked normal. The scope was then slowly withdrawn with the above-noted findings. The patient tolerated the procedure well and was taken to the PACU in hemodynamically stable condition.
--- NOTE | 2024-03-29 09:04 | W.PM.DSUDISC ---
Date of service: 03/29/24 Time of Service: 09:04 Discharge Plan Disposition Patient Disposition: Home Condition: Good Discharge Details Attending Provider: Pérez Parish Primary Care Provider: Alexei Johnson Home Meds and New Rx's Prescriptions: No Action cholecalciferol (vitamin D3) 25 mcg (1,000 unit) capsule 25 mcg PO DAILY multivitamin Tablet 1 tab PO DAILY budesonide-formoterol 80-4.5 mcg/actuation HFA aerosol inhaler See Rx Instructions .ROUTE .COMPLEX Qty: 10.2 12RF Dose Instruction: INHALE 2 PUFFS BY MOUTH TWICE DAILY Rx Instructions: INHALE 2 PUFFS BY MOUTH TWICE DAILY lisinopril 2.5 mg tablet 2.5 mg PO DAILY Qty: 90 4RF bisacodyl [Dulcolax (bisacodyl)] 5 mg tablet,delayed release (DR/EC) 5 mg PO ONCE Qty: 4 0RF Rx Instructions: Take per colonoscopy instructions provided by ordering providers office polyethylene glycol 3350 17 gram/dose powder 17 g PO ONCE Qty: 238 0RF Rx Instructions: Take per colonoscopy instructions provided by ordering providers office triamcinolone acetonide 0.1 % cream 1 applic Topical BID PRN (Reason: rash) Qty: 80 1RF Rx Instructions: apply to red area on lateral left neck as needed albuterol sulfate 90 mcg/actuation HFA aerosol inhaler 2 inh inhalation Q6H PRN (Reason: shortness of breath or wheezing) Qty: 18 4RF (DME) inhalational spacing device Spacer See Rx Instructions .Route Qty: 1 3RF Rx Instructions: Use with inhaler Discharge Instructions Additional Instructions: FINDINGS: Some very small, benign?appearing polyps were found in the rectum. This might be what caused the Cologuard test to be positive. Overall they are nothing to worry about and they did get removed and will get tested. Incidentally seen was diverticular disease and hemorrhoid disease. These are both extremely common, benign conditions that require no intervention as long as you do not have any complaints or symptoms from them. Stand Alone Forms: Colonoscopy Post Instructions Activity:: Activity as Tolerated Diet:: As Tolerated
[2024-03-29] MEDS: Lactated Ringers 1,000 ML 80 ML IV (09:17)
--- NOTE | 2024-03-29 09:29 | W.ANESPRE ---
General Info Date of Service Date Performed: 03/29/24 Height: 5 ft 4 in Weight: 65.5 kg Body Mass Index (BMI): 24.7 Surgical Procedure: Operation Date: 03/29/24 09:50 Proposed Procedure Side Surgeon christine Parish MD Meds Allergies and Home Medications Allergies Allergy/AdvReac Type Severity Reaction Status Date / Time Sulfa (Sulfonamide Allergy Mild RASH Verified 03/29/24 08:58 Antibiotics) Scallops Allergy Intermediate Vomiting/Di Uncoded 03/29/24 08:58 arrhea Home Medication ?Medication ?Instructions ?Recorded cholecalciferol (vitamin D3) 25 25 mcg PO DAILY 05/15/20 mcg (1,000 unit) capsule multivitamin 1 tab PO DAILY 05/15/20 triamcinolone acetonide 0.1 % 1 applic topical BID PRN rash #80 06/29/20 topical cream grams albuterol sulfate 90 mcg/actuation 2 inh inhalation Q6H PRN shortness 03/18/22 aerosol inhaler of breath or wheezing #18 grams inhalational spacing device #1 ea 03/18/22 budesonide-formoterol HFA 80 See Rx Instructions .Route 07/24/23 mcg-4.5 mcg/actuation aerosol .COMPLEX #10.2 grams inhaler lisinopril 2.5 mg tablet 2.5 mg PO DAILY #90 tabs 07/24/23 bisacodyl 5 mg tablet,delayed 5 mg PO ONCE #4 tabs 03/10/24 release (Dulcolax (bisacodyl)) polyethylene glycol 3350 17 17 g PO ONCE #238 grams 03/10/24 gram/dose oral powder Current Visit Medications: Current Medications Generic Name Dose Route Start Last Admin Trade Name Freq PRN Reason Stop Dose Admin Ringer's Solution 1,000 mls @ 80 mls/hr 03/29/24 06:00 03/29/24 09:17 IV 03/29/24 23:59 80 mls/hr INFUSION HOWARD Administration IV Miscellaneous Supplies 1 each 03/29/24 06:00 Iv Access IV 03/29/24 23:59 DIRECTED HOWARD Sodium Chloride 0 ml 03/29/24 06:00 Normal Saline Flush 10 Ml Syr IV 03/29/24 23:59 PRN PRN Sodium Chloride 0 ml 03/29/24 06:00 Normal Saline 10 Ml Vial IJ 03/29/24 23:59 DIRECTED PRN Sterile Water 0 ml 03/29/24 06:00 Water,Injection,Sterile 10 Ml Vial IJ 03/29/24 23:59 DIRECTED PRN [facility] Active Problems Active Problems: Problem Status Onset Code Positive colorectal cancer screening using Cologuard test Acute R19.5 Pain in both feet Acute M79.671, M79.672 Primary osteoarthritis of right knee Acute M17.11 Impacted cerumen, right ear Acute H61.21 Facial nerve disorder Acute G51.9 Constricted right ear Acute H61.301 Seborrheic keratoses Acute L82.1 Right knee pain Acute M25.561 Ceruminosis Acute H61.20 Hypertension Chronic I10 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 Decreased strength, endurance, and mobility Acute R53.1, Z74.09 History of section Acute Z98.891 Status post breast biopsy Acute Z98.890 Status post foot surgery Acute Z98.890 Varicose veins of lower extremity Acute I83.90 Raynaud's disease Acute I73.00 Primary osteoarthritis of right hip Acute M16.11 Osteopenia Acute M85.80 Chronic left shoulder pain Acute 04/29/17 M25.512, G89.29 Medical History Medical History (Updated 03/28/24 @ 12:17 by Adán Kelley) Sensorineural hearing loss, bilateral Exostosis of both external ear canals SIMMONS (dyspnea on exertion) Right flank discomfort Encounter for annual physical exam Chest pain (06/18/02) Full work up-negative on all per pt Depressive disorder Skin lesion (12/30/17) Bowel dysfunction (03/08/18) Surgical History Surgical History section FOOT SURGERY (~1959) Biopsy of breast (~1977) LEFT Tobacco Smoking/Tobacco Use Status: Former Tobacco Use Passive smoking exposure: No Second hand exposure: Yes Alcohol Alcohol Intake: current Alcohol intake frequency: 0-2 drinks per day Alcohol type: wine Substance Use Substance use: Never Substance use type: does not use Counseling provided: none Vital Signs and Lab Results Vital Signs Most Recent Vital Signs in EMR: Most Recent Vital Signs Temp Pulse Resp BP Pulse Ox 36.4 C L 80 16 145/71 H 99 03/29/24 09:00 03/29/24 09:00 03/29/24 09:00 03/29/24 09:00 03/29/24 09:00 Lab Results Blood Type / Crossmatch: No Data to Display Complete Blood Count: No Data to Display Complete Metabolic Panel: No Data to Display Liver Function Panel: No Data to Display Coagulation Panel: No Data to Display Cardiac Panel: No Data to Display Arterial Blood Gas: No Data to Display Venous Blood Gas: No Data to Display Pancreas Panel: No Data to Display Thyroid Panel: No Data to Display Infectious Disease: No Data to Display Blood Cultures: No Data to Display Toxicology Panel: No Data to Display Imaging and Studies Imaging and Studies Study information below may be from another EMR and interpreted by another provider. Please see original notes in EMR for more complete details. Echocardiogram Summary: Admission Date: 04/23/22 : 1945 Age: 76 APPROVED REPORT EXAM: Comprehensive 2D, Doppler, and color-flow Echocardiogram Patient Location: Out-Patient [employer] Technician: Loida Abreu RDCS (AE) Indications: SOB, SIMMONS,Asthma Other Information Study Quality: Adequate Conclusion Normal left ventricular wall thickness and chamber size. Estimated ejection fraction is 59%. Wall motion is normal Normal right ventricular size and systolic function Both atria are normal in size There is no structural or hemodynamically significant valvular disease Estimated right ventricular systolic pressure is 31 mmHg Pulmonary Function Summary: Date of service: 03/10/22 Time of Service: 10:08 Pulmonary Function Test Result Requesting Provider Mary Bruno Indications: Dyspnea Interpretation Spirometry: There is moderate airflow limitation. There is technically no significant bronchodilator response. Lung Volumes: Lung volumes are normal. Diffusion Capacity: Diffusion is low. Airway Pressure: Increased airways resistance. Impression Moderate airflow obstruction with borderline bronchodilator response and a low diffusion. 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 The borderline bronchodilator response and increased airways resistance could indicate an asthma overlap syndrome. Clinical Correlation therefore is recommended. Anesthesia Assessment and Plan Anesthesia History Personal History: PONV Family History: No Family History of Anesthesia Complications Exercise Tolerance Exercise Tolerance: Metabolic Equivalents>4 Pertinent Negatives Pertinent Negatives: No Symptoms of GERD and No Major Cardiovascular Symptoms or Complaints Cardiac & Pulmonary Exam Cardiac Exam: Normal S1/S2 Heart Sounds Pulmonary Exam: Clear Bilateral Breath Sounds Implantable Cardiac Device Does patient have a Pacemaker or an ICD?: No Airway Exam Known Difficult Airway: No Mallampati Class: 1 Mouth Opening: Normal (> 3cm) Thyromental Distance: Greater than 3 cm Neck Range of Motion: Full ROM Neck Circumference: Normal Teeth Condition: Normal Dentition ASA Classification ASA Score: ASA 2 Emergency Case?: No NPO Status NPO Status: NPO Clears >2 hours, Solids >8 hours Anesthesia Plan Resuscitation Status: Full Code Anesthesia Technique: General Anesthesia Airway Planned: Natural Airway Monitors Used: Standard Monitors
[2024-03-29 09:34] VITALS: BMI 24.7
--- NOTE | 2024-03-29 10:07 | BOWEL_PTH ---
PATIENT: Emma Montano LOC: [facility] U#:[id number] AGE/SX: 78/F ROOM: RE03/29/[address]: Pérez Parish : 1945 BED: DIS: 03/29/2024 SPEC #: [id number] RECD: 03/29/24 12:53 STATUS: MENDEZ RE #: [id number] JADYN: 03/29/24 10:[address]: Pérez Parish DEPT: Surgical Specimen RECD BY: Jolene Moore ENTERED: 03/29/24 12:54 SP TYPE: Bowel OTHR DR: Alexei Alcantara DNP Tissues: 1 - BIOPSY BOWEL 2 - BIOPSY BOWEL Procedures: GROSS AND MICRO LEVEL 4 Comments: [id number]
[2024-03-29 10:25] VITALS: BP 118/66; PULSE 65; RESP 15; TEMP 36.4; O2SAT 100
--- NOTE | 2024-03-29 10:39 | W.ANESPOSTOP ---
Postoperative Evaluation Date, Time and Location Date Performed: 03/29/24 Time Performed: 10:30 Patient Location: Day Surgery Unit Vital Signs Most Recent Imported Vital Signs: Most Recent Vital Signs Temp Pulse Resp BP Pulse Ox 36.4 C L 65 15 118/66 100 03/29/24 10:25 03/29/24 10:25 03/29/24 10:25 03/29/24 10:25 03/29/24 10:25 Pain Score Most Recent Pain Score: Most Recent Pain Score Pain Level 0 03/29/24 10:25 Assessment Mental Status: Awake (Alert & Oriented to Patient Baseline) Airway and Respiratory Function: Patent airway with normal (patient baseline) respiratory exam Cardiovascular Function: Hemodynamically Stable Hydration Status: Adequately Hydrated Nausea & Vomiting: No Nausea or Vomiting Pain: Pt. Denies Any Pain Peripheral Nerve Block: Patient did not receive a nerve block
[2024-03-29 10:49] VITALS: BP 126/78; PULSE 56; RESP 16; TEMP 36.1; O2SAT 99
== END 2024-03-29 11:16 | disposition home or self-care (01) ==
PROVIDERS: PCP Nurse Practitioner Family; Visit Provider Student in an Organized Health Care Education/Training Program
PROC: 0DJD8ZZ Inspection of Lower Intestinal Tract, Via Natural or Artificial Opening Endoscopic (ICD-10-PCS; CPT 45378; principal; 2024-03-29 09:45)
DX: Z12.11 Encounter for screening for malignant neoplasm of colon (principal); R19.5 Other fecal abnormalities; K57.30 Diverticulosis of large intestine without perforation or abscess without bleeding; K63.5 Polyp of colon
CPT/HCPCS: 45380; 00123; 88305; J2704

== ENCOUNTER → 2024-08-01 09:01 | Outpatient (BNVA) | payer MEDICARE, SELFPAY | PROVIDERS: PCP Nurse Practitioner Family; Referring Provider Nurse Practitioner Family | DX: M17.11 Unilateral primary osteoarthritis, right knee (principal) | CPT/HCPCS: 20610; 99213; J1010 ==

== ENCOUNTER 2024-08-10 01:54 | Outpatient (CLI) | payer MEDICARE, SELFPAY ==
[2024-08-10 07:57] LABS: Anion Gap 5.3 mmol/L (3-11); BUN 40 mg/dL (7-18); CO2 29.7 mmol/L (21.0-32.0); CREATININE 1.1 mg/dL (0.55-1.02); Calcium 9.5 mg/dL (8.5-10.1); Chloride 105 mmol/L (98-107); Glucose 90 mg/dL (74-106); Potassium 4.6 mmol/L (3.5-5.1); Sodium 140 mmol/L (136-145)
== END 2024-08-10 01:55 | disposition home or self-care (01) ==
LOC: LBO 01:54
PROVIDERS: PCP Nurse Practitioner Family; Visit Provider Nurse Practitioner Family
DX: R00.0 Tachycardia, unspecified (principal)
CPT/HCPCS: 36415; 80048

== ENCOUNTER 2024-08-18 08:56 | Outpatient (RCR) | payer MEDICARE, SELFPAY | END 2024-08-19 23:59 | disposition home or self-care (01) | LOC: CARDOPNVT 08:56 | PROVIDERS: PCP Nurse Practitioner Family; Visit Provider Internal Medicine Cardiovascular Disease | DX: R00.0 Tachycardia, unspecified (principal) | CPT/HCPCS: 93225 ==

== ENCOUNTER 2024-08-20 15:55 | Outpatient (RCR) | payer MEDICARE, SELFPAY ==
--- NOTE | 2024-08-23 14:24 | W.HOLTRPT ---
Date of service: 08/23/24 Time of Service: 14:24 Holter Monitor Report Referring Provider:: Alexei Armstrong Indications:: Tachycardia Holter Monitor Note: This is a 48-hour Holter monitor. Rhythm throughout was sinus with an average heart rate of 69. Minimum was 45, maximum 132. There were very rare isolated atrial and ventricular ectopic beats. There was no atrial fibrillation, no high-grade AV block, no pauses greater than 3 seconds. No symptoms were reported
== END 2024-09-16 23:59 | disposition home or self-care (01) ==
LOC: CARDOPNVT 15:55
PROVIDERS: PCP Nurse Practitioner Family; Visit Provider Internal Medicine Cardiovascular Disease
DX: R00.0 Tachycardia, unspecified (principal)
CPT/HCPCS: 93227; 93226

== ENCOUNTER → 2025-02-09 09:55 | Outpatient (BNVA) | payer MEDICARE, SELFPAY | PROVIDERS: PCP Nurse Practitioner Family; Referring Provider Nurse Practitioner Family; Visit Provider Podiatrist | DX: I87.2 Venous insufficiency (chronic) (peripheral) (principal); I73.89 Other specified peripheral vascular diseases; M19.071 Primary osteoarthritis, right ankle and foot; M19.072 Primary osteoarthritis, left ankle and foot; M79.671 Pain in right foot; M79.672 Pain in left foot; I10 Essential (primary) hypertension; I83.93 Asymptomatic varicose veins of bilateral lower extremities | CPT/HCPCS: 99213 ==

== ENCOUNTER 2025-03-23 15:26 | Outpatient (CLI) | payer MEDICARE, SELFPAY ==
--- NOTE | 2025-03-23 15:00 | DI.RAD_ITS ---
Exam(s) XR KNEE LT 2V AP,LAT XR KNEE RT 2V AP,LAT XR STANDING ALIGNMENT EXAM: XR STANDING ALIGNMENT CLINICAL HISTORY: bilat knee pain. TECHNIQUE: 2D digital imaging was performed. Standing AP views were performed from the pelvis through the ankles. PA and lateral weight-bearing views of both knees. COMPARISON: CR XR KNEE RT 2V AP,LAT from 03/23/2025 CR XR KNEE LT 2V AP,LAT from 03/23/2025 FINDINGS: BONES: No acute fracture is present. No bony destructive lesion is seen. Leg length discrepancy: Minimal overall leg length discrepancy. JOINTS: Knees: There is moderate to severe narrowing of the medial femoral tibial joint space of the right knee and moderate narrowing of the medial femoral tibial joint space of the left knee. There is periarticular spurring greater laterally and at the patellofemoral joints. There is severe narrowing of both patellofemoral joint spaces. There is bilateral valgus angulation, greater on the right. The ankle joints show mild joint space narrowing bilaterally. The hip joints show moderate to severe degenerative changes, greater on the right. SOFT TISSUE: Bilateral lower leg edema. 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 Advanced degenerative change also noted in both hips, right greater than left. Minimal overall leg length discrepancy. DATA REPOSITORY: RADIATION DOSE DELIVERED:
== END 2025-03-23 15:27 | disposition home or self-care (01) ==
LOC: DIORS 15:26
PROVIDERS: PCP Nurse Practitioner Family; Referring Provider Nurse Practitioner Family; Visit Provider Student in an Organized Health Care Education/Training Program
DX: M25.561 Pain in right knee (principal); M25.562 Pain in left knee; M17.0 Bilateral primary osteoarthritis of knee
CPT/HCPCS: 99214; 73560; 77073

== ENCOUNTER 2025-05-16 01:04 | Outpatient (CLI) | payer MEDICARE, SELFPAY ==
--- NOTE | 2025-05-16 07:30 | DI.MAMMO_ITS ---
Exam(s) MAMMO SCREENING EXAM: MAMMO SCREENING CLINICAL HISTORY: screening,z12.39. TECHNIQUE: Bilateral full field digital CC and MLO mammographic images were obtained with 3D tomosynthesis and utilizing computer aided detection (CAD). COMPARISON: Prior outside mammograms were reviewed. Most recent was 2022. FINDINGS: There has been no significant change in the appearance and distribution of the fibroglandular tissue. There are no new spiculated masses nor malignant appearing microcalcification groups. There is no significant architectural distortion nor skin thickening-retraction. IMPRESSION: No radiographic evidence of malignancy. BI-RADS Category 1 - Negative Breast Density - Category B - There are scattered areas of fibroglandular density. Breast density Category C or D implies that the patient has dense breast tissue. Dense breast tissue can make it harder to find cancer on a mammogram. Dense breast tissue is also associated with an increased risk of breast cancer. This information about the result of the mammogram report was provided to the patient to raise their awareness. Use this report when you speak with the patient about their risks for breast cancer, which includes their family history. At that time, you may recommend additional screening tests (Ultrasound or MRI) as these tests may add significant information. A negative radiographic report should not delay biopsy if a dominant or clinically suspicious mass is present. Up to ten percent of cancers are not identified on mammography. A negative report may reinforce clinical impression. Adenosis and dense breasts may obscure an underlying neoplasm. False positive reports average 6 to 10%. Patient will receive a letter notifying them of these results.
== END 2025-05-16 01:24 ==
LOC: DI 01:04
PROVIDERS: PCP Nurse Practitioner Family; Visit Provider Nurse Practitioner Family
DX: Z12.31 Encounter for screening mammogram for malignant neoplasm of breast (principal); R92.323 Mammographic fibroglandular density, bilateral breasts
CPT/HCPCS: 77063; 77067